=== PATIENT | female | born 1990 | race Caucasian/White ===

== ENCOUNTER 2017-01-29 10:09 | Emergency (ER) | payer OTHER ==
--- NOTE | ~2017-01-29 | CR63 ---
[facility] A Service of [facility] [place] RADIOLOGY TEXT RESULTS PATIENT: JOSEFINA FUCHS LOCATION: SED : 91 UNIT #: [id number] AGE: [address]: Christy Milan MD SEX: F ORDER DR: [id number] [place] [id number] E MR#: [id number] Acc #: [id number] NAME: JOSEFINA FUCHS : 1990 SEX: F STUDY DATE/TIME: 01/29/2017 11:50 UNIT: SED ROOM: STUDY DESCRIPTION: CR Chest 2 View Attending Physician: Christy Milan M.D. Ordering Physician: Christy Milan M.D. Primary Care Physician: No Primary Care Physician MEDICAL IMAGING REPORT This report is preliminary unless electronic signature is present. EXAM 2 views of the chest COMPARISON October 24, 2015. INDICATION A 26-year-old female with pleuritic chest pain and anxiety for 3 days. The pain localizes to the right side of the chest and under the right breast. Current tobacco use and history of asthma. FINDINGS Cardiomediastinal silhouette is normal. No evidence of pneumothorax, pleural effusion or acute airspace disease. IMPRESSION No acute radiographic abnormality. Dictated by... Kushal Medina M.D. THIS IS AN ELECTRONICALLY VERIFIED REPORT Kushal Medina M.D. at 01/31/2017 4:23 PM PAOLO/oni TD: 01/29/2017 12:54 JOB #: [id number] MEDICAL IMAGING REPORT [facility] A Service of [facility] [place] RADIOLOGY TEXT RESULTS PATIENT: JOSEFINA FUCHS LOCATION: SED : 91 UNIT #: [id number] AGE: [address]: Christy Milan MD SEX: F ORDER DR: Page 1 of 1
--- NOTE | ~2017-01-29 | EKG ---
PATIENT: JOSEFINA FUCHS UNIT #: [id number] Ventricular Rate: 66 BPM Atrial Rate: 66 BPM P-R Interval: 108 ms QRS Duration: 76 ms Q-T Interval: 404 ms QTC Calculation(Bezet): 423 ms P [place]: 21 degrees Calculated R [place]: 56 degrees Calculated T [place]: 11 degrees Diagnosis Line: Sinus rhythm with short MS Diagnosis Line: Otherwise normal ECG Diagnosis Line: When compared with ECG of 28-NOV-2016 05:11, Diagnosis Line: No significant change was found Diagnosis Line: Confirmed by CLEMENCIA AGUIRRE MD ([id number]) on Diagnosis Line: 01/31/2017 9:21:25 AM INTERPRETING MD: TIMOTHY ANDERSON
[~2017-01-29 10:09] MED LIST: BACTRIM DS TABL1 TA1 PO; BENADRYL PO; BIRTH CONTROL PILLS; DEPO-PROVER150 MG/ML INJ; ELIMITE60 GM TOP; FLEXERIL10 M1 PO; FLEXERIL10 MG PO; IBUPROFEN800 MG; KEFLEX500 M1 PO; MEDROL PO; MOTRIN PO; NO MEDICATIONS; PHENERGAN PO; PRENATAL1 TA1 PO; PYRIDIUM PO; VOLTAREN75 MG PO
[2017-01-29 11:22] LABS: URINE SOURCE CLEAN CATCH
[2017-01-29 11:24] LABS: URINE APPEARANCE CLEAR; URINE BILIRUBIN NEG (NEG); URINE BLOOD NEG (NEG); URINE COLOR YELLOW; URINE GLUCOSE NEG (NORM); URINE KETONE NEG (NEG); URINE LEUKOCYTE ESTERASE 1+ (NEG); URINE NITRATE NEG (NEG); URINE PROTEIN NEG (NEG); URINE UROBILINOGEN 0.2 MG/DL (NORM)
[2017-01-29 11:27] LABS: MICRO INDICATED? YES
[2017-01-29 11:31] LABS: CULTURE INDICATED? YES; URINE BACTERIA 2+ (NEG); URINE RBC 0-2 /[HPF] (0-2); URINE SQUAMOUS EPITHELIAL CELL MODERATE /[HPF]; URINE WBC 25-50 /[HPF] (0-5)
[2017-06-18] MEDS ORDERED: NO MEDICATIONS (00:36)
[2017-06-19] MEDS ORDERED: LORTAB 7.5-3251 EACH PO (11:05)
[2017-06-19] MEDS ORDERED: AUGMENTIN PO (11:06)
== END 2017-01-29 12:41 | disposition home or self-care (01) ==
LOC: SED 10:09
PROVIDERS: Student in an Organized Health Care Education/Training Program
DX: N39.0 Urinary tract infection, site not specified (principal); N64.4 Mastodynia; F41.9 Anxiety disorder, unspecified
CPT/HCPCS: 71020; 81003; 84703; 87086; 87088; 87186; 93005; 99284

== ENCOUNTER 2017-01-31 21:23 | Emergency (ER) | payer OTHER ==
--- NOTE | ~2017-01-31 | EKG ---
PATIENT: JOSEFINA FUCHS UNIT #: [id number] Ventricular Rate: 57 BPM Atrial Rate: 57 BPM P-R Interval: 146 ms QRS Duration: 80 ms Q-T Interval: 444 ms QTC Calculation(Bezet): 432 ms P [place]: 45 degrees Calculated R [place]: 59 degrees Calculated T [place]: 44 degrees Diagnosis Line: Sinus bradycardia Diagnosis Line: Low voltage QRS Diagnosis Line: Borderline ECG Diagnosis Line: Diagnosis Line: Confirmed by ALBERTO WHEELER MD ([id number]) on Diagnosis Line: 02/02/2017 8:48:22 AM INTERPRETING MD: ISMAEL
[2017-01-31 21:23] LABS: POC - CKMB <1.0 ng/mL (0.0-7.9); POC - TROPONIN <0.05 ng/mL (<=0.05)
[2017-01-31 22:10] LABS: BASOPHIL# 0.1 X10e3 (0-0.3); BASOPHIL% 1.4 % (0-2.5); EOSINOPHIL# 0.5 X10e3 (0-0.7); EOSINOPHIL% 6.7 % (0.0-7.0); HEMATOCRIT 36.3 % (35.0-45.0); HEMOGLOBIN 11.7 gm/dL (12.0-16.0); LYMPHOCYTE# 2.7 X10e3 (1.0-3.5); LYMPHOCYTE% 34.4 % (17.0-45.0); MEAN CELL VOLUME 82.8 FL (83-96); MEAN CORPUSCULAR HEMOGLOBIN 26.7 PG (28-34); MEAN CORPUSCULAR HGB CONC 32.3 g/dL (30-36); MEAN PLATELET VOLUME 9.4 FL (6.5-11.5); MONOCYTE# 0.7 X10e3 (0-1.0); MONOCYTE% 9.4 % (3.0-12.0); NEUTROPHIL# 3.8 X10e3 (1.5-7.1); NEUTROPHIL% 48.1 % (40-75); PLATELET COUNT 265 X10e3 (140-420); RED BLOOD COUNT 4.39 X10e (3.90-5.30); RED CELL DISTRIBUTION WIDTH 15.5 % (11.0-15.5); WHITE BLOOD COUNT 7.9 X10e3 (4.0-10.5)
[2017-01-31 22:12] LABS: DIFF IND NO
[2017-01-31 22:30] LABS: ALBUMIN SERUM 3.7 g/dL (3.5-5.0); ALKALINE PHOSPHATASE 57 U/L (32-92); ALT (SGPT) 13 U/L (10-40); AST (SGOT) 17 U/L (10-42); BILIRUBIN, DIRECT <0.1 mg/dL (0.0-0.2); BILIRUBIN,INDIRECT 0.3 mg/dL (0.0-0.9); BILIRUBIN,TOTAL 0.4 mg/dL (0.2-2.0); BLOOD UREA NITROGEN 14 mg/dL (9-23); CALCIUM SERUM 8.5 mg/dL (8.4-10.2); CARBON DIOXIDE 23 mmol/L (22-31); CHLORIDE 105 mmol/L (100-111); CREATININE SERUM 0.5 mg/dL (0.6-1.4); GLOM FILT RATE Estimated 134.5 mL/min (>60); GLUCOSE FASTING 91 mg/dL (70-110); POTASSIUM 3.5 mmol/L (3.5-5.1); PROTEIN TOTAL SERUM 6.7 g/dL (6.0-8.3); SODIUM 135 mmol/L (135-145)
[2017-06-18] MEDS ORDERED: NO MEDICATIONS (00:36)
[2017-06-19] MEDS ORDERED: LORTAB 7.5-3251 EACH PO (11:05)
[2017-06-19] MEDS ORDERED: AUGMENTIN PO (11:06)
== END 2017-01-31 23:10 | disposition home or self-care (01) ==
LOC: CED 21:23
PROVIDERS: Emergency Medicine
DX: F41.9 Anxiety disorder, unspecified (principal); R07.81 Pleurodynia; F19.10 Other psychoactive substance abuse, uncomplicated; F17.200 Nicotine dependence, unspecified, uncomplicated
CPT/HCPCS: 36415; 80048; 80076; 82553; 83880; 84484; 85025; 85379; 93005; 99283

== ENCOUNTER 2017-04-23 17:47 | Emergency (ER) | payer OTHER ==
[~2017-04-23] VITALS: Ht 154.9 cm; Wt 57.3 kg
--- NOTE | ~2017-04-23 | CR20 ---
[facility]. [facility] A Service of [facility] RADIOLOGY TEXT RESULTS PATIENT: JOSEFINA FUCHS LOCATION: SED : 91 UNIT #: [id number] AGE: [address]: PONCHO ELLSWORTH SEX: F ORDER DR: [id number] [place] [id number] E MR#: [id number] Acc #: [id number] NAME: JOSEFINA FUCHS : 1990 SEX: F STUDY DATE/TIME: 04/23/2017 18:45 UNIT: SED ROOM: STUDY DESCRIPTION: CR Ankle Min 3 Views Lt Attending Physician: Poncho Ellsworth Ordering Physician: Poncho Ellsworth Primary Care Physician: [facility], MEDICAL IMAGING REPORT This report is preliminary unless electronic signature is present. EXAM Left ankle 04/23/2017 HISTORY 26-year-old female with left ankle pain after jumping into pool 4 days ago. COMPARISON Left foot same date. FINDINGS 3 views of the left ankle demonstrate no acute fracture or dislocation. Ankle mortise symmetric. Talar dome intact. No ankle effusion. Soft tissues are unremarkable. IMPRESSION Unremarkable left ankle Dictated by... David Dumont M.D. THIS IS AN ELECTRONICALLY VERIFIED REPORT David Dumont M.D. at 04/24/2017 3:57 PM PATITO/criselda TD: 04/24/2017 04:46 JOB #: [id number] MEDICAL IMAGING REPORT Page 1 of 1
--- NOTE | ~2017-04-23 | CR126 ---
[facility]. [facility] A Service of [facility] & [facility] RADIOLOGY TEXT RESULTS PATIENT: JOSEFINA FUCHS LOCATION: SED : 91 UNIT #: [id number] AGE: [address]: PONCHO ELLSWORTH SEX: F ORDER DR: [id number] [address] [id number] E MR#: [id number] Acc #: [id number] NAME: JOSEFINA FUCHS : 1990 SEX: F STUDY DATE/TIME: 04/23/2017 18:45 UNIT: SED ROOM: STUDY DESCRIPTION: CR Foot Complete Min 3 View Lt Attending Physician: Poncho Ellsworth Ordering Physician: Poncho Ellsworth Primary Care Physician: [facility], MEDICAL IMAGING REPORT This report is preliminary unless electronic signature is present. EXAM Left foot 04/23/2017 HISTORY 26-year-old female with left foot pain after jumping into a pool 4 days ago. COMPARISON Left ankle same date. FINDINGS 3 views of the left foot demonstrate no acute fracture or dislocation. Soft tissues are unremarkable. IMPRESSION Unremarkable left foot Dictated by... David Dumont M.D. THIS IS AN ELECTRONICALLY VERIFIED REPORT David Dumont M.D. at 04/24/2017 3:57 PM PATITO/criselda TD: 04/24/2017 04:49 JOB #: [id number] MEDICAL IMAGING REPORT Page 1 of 1
[2017-06-18] MEDS ORDERED: NO MEDICATIONS (00:36)
[2017-06-19] MEDS ORDERED: LORTAB 7.5-3251 EACH PO (11:05)
[2017-06-19] MEDS ORDERED: AUGMENTIN PO (11:06)
== END 2017-04-23 20:14 | disposition home or self-care (01) ==
LOC: SED 17:47
DX: S93.402A Sprain of unspecified ligament of left ankle, initial encounter (principal); S93.602A Unspecified sprain of left foot, initial encounter; J45.909 Unspecified asthma, uncomplicated; Z91.040 Latex allergy status; X58.XXXA Exposure to other specified factors, initial encounter
CPT/HCPCS: 73610; 73630; 99283

== ENCOUNTER → 2017-06-25 | Outpatient (CLI) | payer OTHER ==
[~2017-06-25] MED LIST changes: +AUGMENTIN PO; +LORTAB 7.5-3251 EACH PO
[2017-06-25 13:02] LABS: URINE APPEARANCE CLEAR; URINE BILIRUBIN NEG (NEG); URINE BLOOD NEG (NEG); URINE COLOR YELLOW; URINE GLUCOSE NEG (NEG); URINE KETONE NEG (NEG); URINE LEUKOCYTE ESTERASE TRACE (NEG); URINE NITRATE NEG (NEG); URINE PROTEIN NEG (NEG); URINE SPECIFIC GRAVITY 1.021 (1.003-1.035); URINE UROBILINOGEN 0.2 MG/DL (NEG)
[2017-06-25 13:04] LABS: U HYALINE CASTS AUWI 0-2 /[LPF]; URBCS1 AUWI 0-2 /[HPF] (0-2); URINE BACTERIA AUWI NEG (NEGATIVE); URINE SOURCE CLEAN CATCH; URINE SQUAMOUS EPITHELIAL CELL FEW /[HPF]
== END | disposition home or self-care (01) ==
LOC: CLAB 12:12
PROVIDERS: Surgery
DX: R31.9 Hematuria, unspecified (principal)
CPT/HCPCS: 36415; 81003